=== PATIENT | male | born 1960 | race Caucasian/White ===

== ENCOUNTER 2017-12-20 05:47 | Day surgery (SDC) | payer BC ==
[~2017-12-20] VITALS: Ht 172.7 cm; Wt 90.9 kg
--- NOTE | ~2017-12-20 | OP ---
PATIENT NAME: MARI SILVER MEDICAL RECORD: [id number] :58 LOCATION:D.OPS ADMISSION DATE: SURGEON: ROSANA GARCIA MD DATE OF OPERATION: 12/20/2017 PREOPERATIVE DIAGNOSES: 1. History of gastric polyps. 2. History of Norman's esophagus, in need of surveillance upper endoscopy. 3. Cirrhosis. POSTOPERATIVE DIAGNOSES: 1. History of gastric polyps. 2. History of Norman's esophagus, in need of surveillance upper endoscopy. 3. Several duodenal polyps, which appeared to be adenomatous. 4. History of multiple gastric polyps. 5. Probable stable Norman's esophagus. 6. Grade I esophageal varices. 7. Cirrhosis. PROCEDURES: 1. Esophagogastroduodenoscopy with cold endoscopic biopsies of the stomach for H. pylori as well as the distal esophagus for Norman's esophagus. 2. Snare polypectomy of a duodenal polyp. 3. Snare polypectomy of a gastric polyp. SURGEON: Rosana Garcia MD HAND TILE MAKER: None. BLOOD LOSS: 25 cc. ANESTHESIA: General. COMPLICATIONS: None. The risks, possible complications, and alternatives to the procedure were explained to the patient. He elects to proceed. ENDOSCOPIC COURSE: The patient was conveyed to the endoscopy suite electively on 12/20/2017. IV sedation was induced by the anesthesia staff. The reason for the anesthesia staff being present during the procedure includes a history of tachyarrhythmias. A bite-block was inserted. A gastroscope was inserted into the mouth. It was advanced easily into the hypopharynx. The esophagus was easily intubated as were the stomach and duodenum. Upon withdrawal, retroflexed and angulus views were obtained. Antral biopsies were obtained and these were cold endoscopic biopsies. I advanced into the duodenum. I identified the largest duodenal polyp, which was at the second portion of the duodenum. I advanced an endoscopic snare. I was able to snare the polyp, performing a polypectomy with the coagulation setting and then the cut setting. The polyp was grasped with an endoscopic retrieval net and was withdrawn out through the mouth. I re-advanced the endoscope into the stomach. I identified the largest gastric polyp. There were probably about 15 gastric polyps and I decided to perform a polypectomy on the largest one. I advanced an endoscopic snare. I wrapped OPERATIVE REPORT [id number] MARI SILVER around the largest polyp and performed a polypectomy with the coagulation setting and then the cut setting. I was able to grasp the polyp with an endoscopic retrieval net and was able to withdraw it out through the mouth. I readvanced the endoscope down the esophagus and then performed multiple 4 quadrant biopsies at the esophageal cardia to survey all the patient's Norman esophagus. I had to stop because of bleeding likely due to the esophageal varices. The endoscope was then withdrawn under direct vision. I will see the patient in my office in 2 to 3 weeks. He would like to be referred to a gear and spline grinder and I likely will refer him to Anay Law. Additionally, when he undergoes a colonoscopy in 1 year for surveillance, I would like to perform an EGD utilizing argon plasma forensic manager, likely in the operating room, to ablate the remaining polyps. TRANSINT:[id number] Voice Confirmation ID: [id number] DOCUMENT ID: [id number] CC: Dr. Paul Negro [place], ROSANA GARCIA MD at 1729 CC: DR PAUL NEGRO [phone] DICTATION DATE: 12/20/17904 BULK SUGAR HANDLER: 12/20/[address] [facility] [place] [place] 12/20/17 [facility] [address] [place] [address]
--- NOTE | ~2017-12-20 | HP ---
PATIENT: MARI SILVER MEDICAL RECORD: [id number] ACCOUNT: [id number] LOCATION:RAUL : 58 ADMISSION DATE: 12/20/17 PCP: Undefined Provider HISTORY AND PHYSICAL EXAMINATION CHIEF COMPLAINT: He is here for endoscopy. HISTORY OF PRESENT ILLNESS: The patient has a history of gastric polyps, also a history of Norman's. The patient is here for upper endoscopy. He was recently diagnosed with cirrhosis. He has had no variceal bleeding. The cirrhosis was not due to hepatitis. He states he has had no history of hepatitis. He has stopped drinking. He is due for colonoscopy in a year due to a history of colon polyps. He has a history of tachyarrhythmias. He back in 2016 was found to have mild cirrhosis on MRI. PAST MEDICAL AND SURGICAL HISTORY: Tachyarrhythmias, hypertension, vertigo, hearing loss, hypothyroidism - on replacement therapy, cirrhosis, Norman's, colon polyps. History of cholecystectomy. REVIEW OF SYSTEMS: Negative for angina or myocardial infarction. Negative for CVA or seizures. Negative for CABG or stents. HOME MEDICINES: Potassium chloride, Norvasc, Prilosec, Synthroid, metoprolol as well as polypropylene glycol. ALLERGIES: No known drug allergies. PHYSICAL EXAMINATION: GENERAL: The patient does not appear acutely ill. He does not appear chronically ill. VITAL SIGNS: Reviewed. HEENT: His face is anisha. EXTREMITIES: No peripheral cyanosis. ABDOMEN: He does have some hepatomegaly with hardness of the liver. No Fletcher sign. PSYCHIATRIC: Normal affect. NEUROLOGIC: Nonfocal. IMPRESSION: History of gastric polyps and a history of Norman esophagus. PLAN: EGD with biopsy of the esophagus as surveillance for Norman's. TRANSINT:[id number] Voice Confirmation ID: [id number] DOCUMENT ID: [id number] CC: Dr. Paul Negro, [place]. HISTORY AND PHYSICAL [id number] ADRIANNEROSANA LA MD at 2127 CC: DR. PAUL NEGRO [phone] DICTATION DATE: 12/20/17 0829 WHEEL PRESS OPERATOR: 12/20/17 1003 [facility] 12/20/17 [facility] [address] [place] [address]
[~2017-12-20 05:47] MED LIST: ALDACTONE50 MG PO; COREG6.25 MG PO; K-DUR20 MEQ PO; LOTREL 10/20 CA1 CAP PO; MAGNESIUM GLUC500 M1 PO; NEXIUM40 MG PO; NORCO 10/325 TA1 TA1 PO; NORVASC10 MG PO; PHENERGAN25 M1 PO; SYNTHROID50 MCG PO; SYSTANE 0.3-0.4%5 ML EACH EYE; TOPROL XL50 MG PO; ZOFRAN4 MG PO
[2017-12-20 06:09] LABS: HEMATOCRIT 33.2 % (42.0-54.0); HEMOGLOBIN 11.3 g/dL (13.5-17.5); MCH 32.5 pg (26.0-34.0); MCV 95.4 fL (80.0-100.0); MEAN PLATELET VOLUME 10.5 fL (7.4-10.4); RBC 3.48 10x6/uL (4.20-6.10); RDW 14.2 % (11.5-14.5); WBC 6.9 10x3/uL (4.8-10.8)
[2017-12-20] MEDS ORDERED: OMEPRAZOLE40 MG PO (06:33)
[2017-12-20 06:38] VITALS: BP 134/77; Ht 172.7 cm; Wt 90.9 kg
[2017-12-20 06:41] LABS: INR 1.25 (0.85-1.17); PROTIME 15.2 SECONDS (11.6-15.0)
== END 2017-12-20 10:07 | disposition home or self-care (01) ==
LOC: D.OPS 05:47
PROVIDERS: Anesthesiology
DX: K22.70 Barrett's esophagus without dysplasia (principal); K31.7 Polyp of stomach and duodenum; K29.50 Unspecified chronic gastritis without bleeding; K74.60 Unspecified cirrhosis of liver; I85.10 Secondary esophageal varices without bleeding; R00.0 Tachycardia, unspecified; I10 Essential (primary) hypertension; E03.9 Hypothyroidism, unspecified; Z01.812 Encounter for preprocedural laboratory examination

== ENCOUNTER 2018-11-03 05:39 | Day surgery (SDC) | payer BC ==
[2017-12-20 06:38] VITALS: Wt 81.6 kg
[~2018-11-03 05:39] MED LIST changes: +ACTIGALL 300 M300 MG PO; +FOLIC ACID1 MG PO; +OMEPRAZOLE40 MG PO
[2018-11-03 06:29] LABS: HEMATOCRIT 34.3 % (42.0-54.0); HEMOGLOBIN 12.8 g/dL (13.5-17.5); MCH 35.3 pg (26.0-34.0); MCHC 37.3 g/dL (31.0-37.0); MCV 94.5 fL (80.0-100.0); MEAN PLATELET VOLUME 11.5 fL (7.4-10.4); RBC 3.63 10x6/uL (4.20-6.10); RDW 12.6 % (11.5-14.5); WBC 5.4 10x3/uL (4.8-10.8)
[2018-11-03 06:38] LABS: INR 1.26 (0.85-1.17); PROTIME 15.2 SECONDS (11.6-15.0)
[2018-11-03 06:39] LABS: APTT 46.4 SECONDS (22.8-39.4)
[2018-11-03 06:46] LABS: ALBUMIN 3.9 g/dL (3.4-5.0); ALKALINE PHOSPHATASE 259 U/L (46-116); ALT (SGPT) 34 U/L (10-68); BILIRUBIN - TOTAL 2.22 mg/dL (0.2-1.3); CALC OSMOLALITY 284 mosm/kg (275-300); CALCIUM 8.8 mg/dL (8.5-10.1); CARBON DIOXIDE 24.4 mmol/L (21.0-32.0); CHLORIDE - SERUM 106 mmol/L (98-107); CREATININE - SERUM 0.8 mg/dL (0.6-1.3); GLUCOSE 115 mg/dL (74-106); POTASSIUM - SERUM 3.4 mmol/L (3.5-5.1); PROTEIN - SERUM 8.1 g/dL (6.4-8.2); SODIUM 143 mmol/L (136-145); UREA NITROGEN 11 mg/dL (7-18); eGFR NON AFRICAN AMERICAN > 90 mL/min (90-120)
[2018-11-03] MEDS ORDERED: FERROUS SULFATE (07:02)
--- NOTE | 2018-11-07 14:42 | HP ---
PATIENT: MARI SILVER MEDICAL RECORD: [id number] ACCOUNT: [id number] LOCATION:RAUL : 58 ADMISSION DATE: 11/03/18 PCP: ROSANA GARCIA MD HISTORY AND PHYSICAL EXAMINATION CHIEF COMPLAINT: Here for endoscopy. HISTORY OF PRESENT ILLNESS: The patient has a history of gastric polyps, also history of Norman's. He is here for surveillance upper endoscopy. He has also had a history of duodenal polyps. He was diagnosed with cirrhosis in the past. He has had no variceal bleeding. He has had no abdominal pain. No melena and no hematochezia. No dysphagia. He has had a history of hepatitis in the past. He has stopped drinking. He is here for colonoscopy, which is a surveillance colonoscopy due to history of colon polyps. He has a history of tachyarrhythmias. Back in 2016, he was found to have mild cirrhosis by MRI. PAST MEDICAL AND SURGICAL HISTORY: Tachyarrhythmias; hypertension; vertigo; hearing loss; hypothyroidism, on replacement therapy; cirrhosis; Norman's esophagus; colon polyps. REVIEW OF SYSTEMS: Negative for angina or myocardial infarction. Negative for CVA or seizure. HOME MEDICINES: Last list of home medicines I have for the patient includes Synthroid and metoprolol. ALLERGIES: No known drug allergies. PHYSICAL EXAMINATION: GENERAL: The patient does not appear acutely ill. He does not appear chronically ill. VITAL SIGNS: Reviewed. HEENT: Face is anisha. EXTREMITIES: No peripheral cyanosis. ABDOMEN: He does have some hepatomegaly with hardness of the liver. PSYCHIATRIC: Normal affect. ASSESSMENT: History of gastric polyps and perhaps duodenal polyps, history of Norman's esophagus, history of colon polyps. PLAN: EGD, esophageal biopsies, ablation of any polypoid tissue, as well as a surveillance colonoscopy. TRANSINT:[id number] Voice Confirmation ID: [id number] DOCUMENT ID: [id number] 11/03/2018 Edited for colorectal surgeon error, john cc: Dr. Paul Negro, HISTORY AND PHYSICAL [id number] CACHORRO SILVERROSANA RHODES MD at 1442 CC: EDWIGE SILVER DO and DR. PAUL NEGRO [phone] DICTATION DATE: 11/03/18 0933 CLASS 1 OWNER OPERATOR: 11/03/18 1031 [facility] 11/03/18 [facility] [address] [place] [address]
--- NOTE | 2018-11-07 14:42 | OP ---
PATIENT NAME: MARI SILVER MEDICAL RECORD: [id number] :58 LOCATION:D.OPS ADMISSION DATE: SURGEON: ROSANA GARCIA MD DATE OF OPERATION: 11/03/2018 PREOPERATIVE DIAGNOSES: 1. History of duodenal polyp. 2. History of gastric polyps. 3. History of Norman esophagus. 4. History of colon polyps, in need of surveillance colonoscopy. POSTOPERATIVE DIAGNOSES: 1. History of duodenal polyp. 2. History of gastric polyps. 3. History of Norman esophagus. 4. History of colon polyps, in need of surveillance colonoscopy. 5. Two duodenal bulb polyps, each semi-pedunculated. PROCEDURE: 1. Gastric polypectomy times 1 utilizing the hot biopsy forceps polypectomy technique. 2. Endoscopic ablation of 10 gastric polyps utilizing the argon plasma button grader. 3. Cold esophageal biopsies for Norman's surveillance. 4. Total colonoscopy to cecum. 5. Hot biopsy forceps colonic polypectomies times 3. SURGEON: Rosana Garcia MD SHROUDMAN: None. BLOOD LOSS: Minimal. ANESTHESIA: IV sedation. COMPLICATIONS: None. The risks, possible complications, and alternatives to the procedure were explained to the patient. He elects to proceed. The discussion specifically included, but was not limited to, bleeding requiring emergency reoperation, infection, endoscopic perforation. ENDOSCOPIC COURSE: The patient was conveyed to the endoscopy suite electively on 11/03/2018. IV sedation was induced by the anesthesia staff. A bite block was inserted. A gastroscope was inserted into the mouth. It was advanced easily into the hypopharynx. The esophagus was easily intubated as were the stomach and duodenum. Upon withdrawal, retroflexed and angulus views were obtained. I advanced into the duodenum. Two polyps were noted. These were semi-pedunculated. One was a 1.2 cm polyp. The other one was a 1.4 cm polyp. Both were removed in their entireties utilizing the hot biopsy forceps polypectomy technique. I then withdrew into the antrum of the stomach. Numerous sessile polyps were OPERATIVE REPORT [id number] MARI SILVER noted. I elected to biopsy the largest of these. This polypectomy was performed utilizing the argon plasma button grader. Hypertensive portal gastropathy was noted. The remaining polyp was ablated utilizing the argon plasma button grader with the esophageal setting in the forced mode. I then withdrew into the esophagus. Short segment Norman esophagus was noted. Four quadrant biopsies were obtained and these were cold endoscopic biopsies. The patient was then turned 180 degrees and placed in the Haro position. A digital rectal examination was performed. A colonoscope was inserted through the anus. It was easily advanced to the cecum. The prep was adequate. I slowly withdrew the endoscope. I irrigated and aspirated extensively. A combination of normal imaging and narrow band imaging were utilized. Three hot biopsy forceps polypectomies were performed. All the polyps were less than 9 mm in diameter. A retroflexed view was obtained in the rectum. I then unretroflexed the scope and removed it under direct vision. I will plan for the patient's next surveillance upper endoscopy to take place in 2 years. I will plan for his colonoscopy surveillance to take place in 3 years. TRANSINT:[id number] Voice Confirmation ID: [id number] DOCUMENT ID: [id number] cc: Dr. Paul Negro ROSANA GARCIA MD at 1442 CC: EDWIGE SILVER DO and DR. PAUL NEGRO [phone] DICTATION DATE: 11/03/18 1110 MILL OILER: 11/03/18 1251 [facility] 11/03/18 [facility] [address] [place] [id number]
== END 2018-11-03 12:00 | disposition home or self-care (01) ==
LOC: D.OPS 05:39
PROVIDERS: Anesthesiology; ATTEND Surgery
DX: K63.5 Polyp of colon (principal); D12.5 Benign neoplasm of sigmoid colon; Z86.010 Personal history of colon polyps; K22.70 Barrett's esophagus without dysplasia; Z01.812 Encounter for preprocedural laboratory examination